=== PATIENT | male | born 1955 | race Caucasian/White ===

== ENCOUNTER 2018-08-31 23:17 | Emergency (ER) | payer BC, OTHER ==
[~2018-08-31] VITALS: Ht 172.7 cm; Wt 103.0 kg
[~2018-08-31 23:17] MED LIST: ALLOPURINOL PO; TESTOSTERONE PELLETS; XANAX
--- OUTSIDE RECORDS SUMMARY | 2018-08-31 23:21 | XMS REPORT ---
Author Author [facility] Address Unknown Phone Unavailable Care Team Providers Care Housing Specialist Name Role Phone MANN GOODWIN Unavailable Unavailable Problems This patient has no known problems. Allergies, Adverse Reactions, Alerts This patient has no known allergies or adverse reactions. Medications This patient has no known medications. Results Test Description Test Time Test Comments Text Results Atomic Results Result Comments FOOT LEFT AP LAT [place] [address] Patient Name: JAKE CORDOBA MR #: [id number] : 1955 Age/Sex: 62/M Req #: [id number] Adm Physician: Ordered by: MANN GOODWIN DPM Report #: [id number] Location: OR Room/Bed: Procedure: [id number] DX/FOOT LEFT AP LAT Exam Date: 06/10/17 Exam Time: 924 REPORT STATUS: Signed PROCEDURE: X-RAY LEFT FOOT, TWO VIEWS COMPARISON: None. INDICATIONS: BUNIONECTOMY FINDINGS: AP and lateral post-operative views of the left foot with overlying bandage material and surgical drain show post- surgical changes of Bunionectomy. There are 2 screws in the distal first metatarsal with near anatomic alignment of the osseous fragments. A K wire transfixes the proximal, mid, and distal phalanges of the fourth digit in anatomic alignment. The hardware is intact. Please refer to performing physician's notes for full details of this procedure. CONCLUSION: As above. Dictated by: Baltazar Keating M.D. on 06/10/2017 at 11:02 Electronically approved by: Baltazar Keating M.D. on 06/10/2017 at 11:02 Dictated By: BALTAZAR KEATING MD 01 Transcribed By: ARETHA on 06/10/171101 COPY TO: MANN OGODWIN DPM CHEST 2 VIEWS [place] [address] Patient Name: JAKE CORDOBA MR #: [id number] : 1955 Age/Sex: 62/M Req #: [id number] Adm Physician: Ordered by: MANN GOODWIN DPM Report #: [id number] Location: OR Room/Bed: Procedure: [id number] DX/CHEST 2 VIEWS Exam Date: 06/01/17 Exam Time: 0900 REPORT STATUS: Signed PROCEDURE: CHEST 2 VIEWS TECHNIQUE: PA and lateral chest INDICATION: Preoperative evaluation for foot surgery COMPARISON: None. FINDINGS: The lungs are clear and symmetrically inflated. No pleural effusions. Normal heart size and central vasculature. Intact skeleton. CONCLUSION: No acute abnormality. Dictated by: Lenka Anderson M.D. on 06/01/2017 at 9:49 Electronically approved by: Lenka Anderson M.D. on 06/01/2017 at 9:49 Dictated By: LENKA ANDERSON MD 8 Transcribed By: ARETHA on 06/01/17948 COPY TO: MANN GOODWIN DPM
[2018-09-01] MEDS ORDERED: ASPIRIN 81 MG CHEW TAB PO ONE
[2018-09-01] MEDS ORDERED: ALBUTEROL SULF 0.083% NEB SOLN 3 ML NEB NEB STA (00:10)
[2018-09-01] MEDS ORDERED: IPRATROPIUM BROMIDE 0.02% 2.5 ML NEB NEB ONE (00:15)
[2018-09-01 00:31] LABS: BASOPHILS # (AUTO) 0.1 (0.0-0.1); BASOPHILS % 0.3 % (0.0-1.0); EOSINOPHILS % 0.1 % (0.0-6.0); HEMATOCRIT 43.3 % (38.2-49.6); HEMOGLOBIN 14.7 g/dL (14.0-18.0); LYMPHOCYTES # (AUTO) 1.5 (1.0-3.2); LYMPHOCYTES % 8.9 % (18.0-39.1); MEAN CORPUSCULAR HEMOGLOBIN 29.9 pg (28-32); MEAN CORPUSCULAR HGB CONC 33.9 g/dL (31-35); MONOCYTES # (AUTO) 1.3 (0.2-0.8); MONOCYTES % 7.6 % (4.4-11.3); NEUTROPHILS # (AUTO) 13.5 (2.1-6.9); NEUTROPHILS % 82.7 % (38.7-80.0); PLATELET COUNT 298 x10e3/uL (140-360); RED BLOOD COUNT 4.92 x10e6/uL (4.3-5.7); RED CELL DISTRIBUTION WIDTH 12.5 % (11.7-14.4)
--- NOTE | 2018-09-01 00:32 | NUR ---
RT NOTIFIED FOR NEB TREATMENT.
[2018-09-01 00:48] LABS: ALANINE AMINOTRANSFERASE 22 IU/L (0-55); ALBUMIN 3.8 g/dL (3.5-5.0); ALBUMIN/GLOBULIN RATIO 1.2 (0.8-2.0); ALKALINE PHOSPHATASE 73 IU/L (40-150); BLOOD UREA NITROGEN 11 mg/dL (7-26); BUN/CREATININE RATIO 9 (6-25); CALCIUM 9.3 mg/dL (8.4-10.2); CARBON DIOXIDE 22 mmol/L (22-29); CREATINE KINASE 201 IU/L (30-200); CREATININE, SERUM 1.17 mg/dL (0.72-1.25); EST GLOMERULAR FILTRATION RATE > 60 ML/MIN (60-); GLUCOSE 151 mg/dL (74-118)
[2018-09-01 01:10] LABS: ANION GAP 16.7 mmol/L (8-16); CHLORIDE 101 mmol/L (98-107); POTASSIUM 4.7 mmol/L (3.5-5.1); SODIUM 135 mmol/L (136-145)
--- NOTE | 2018-09-01 01:39 | Diagnostic Imaging Report ---
CHEST 2 VIEWS, Technique: CHEST 2 VIEWS Comparison: 06/01/2017 Clinical history: Cough DISCUSSION: Stable appearance of the cardiomediastinum. Low lung volumes with mild bibasilar opacities. No effusion or pneumothorax. Anterior wedging of a lower thoracic vertebral body, unchanged. IMPRESSION: Low lung volumes with mild bibasilar opacity, likely atelectasis/vascular crowding. Signed by: Dr Kenzie Choudhury MD on 09/01/2018 1:35 AM
[2018-09-01] MEDS ORDERED: CEFTRIAXONE SOD 1 GM/NS 50 ML 50 ML IV ONE (02:00)
[2018-09-01 02:12] VITALS: BP 155/80
== END 2018-09-01 02:53 | disposition home or self-care (01) ==
LOC: ER 23:17
DX: R05 Cough (principal); R07.89 Other chest pain; J15.9 Unspecified bacterial pneumonia; J98.01 Acute bronchospasm
CPT/HCPCS: 36415; 71046; 80053; 82550; 82553; 83880; 84484; 85025; 87400; 93005; 99284; J0696

== ENCOUNTER 2024-11-23 17:57 | Emergency (ER) | payer OTHER ==
[~2024-11-23] VITALS: Ht 172.7 cm; Wt 103.0 kg
[2024-11-23 18:00] VITALS: TEMP 98.6
[2024-11-23 18:21] VITALS: PULSE 73; RESP 16
[2024-11-23] MEDS: OXYMETAZOLINE HCL 0.05% NAS 1 SPRAY BTL STA (19:19)
[2024-11-23] MEDS ORDERED: ULTRAM 50MG50 MG PO (19:28)
[2024-11-23 20:07] VITALS: BP 143/84; PULSE 76; RESP 18; TEMP 97.6; O2SAT 98
== END 2024-11-23 19:24 | disposition home or self-care (01) ==
LOC: ER 18:04
DX: R04.0 Epistaxis (principal); E78.5 Hyperlipidemia, unspecified; Z85.818 Personal history of malignant neoplasm of other sites of lip, oral cavity, and pharynx; Z87.442 Personal history of urinary calculi
CPT/HCPCS: 99284

== ENCOUNTER 2024-12-06 19:38 | Emergency (ER) | payer OTHER ==
[~2024-12-06] VITALS: Ht 172.7 cm; Wt 103.0 kg
[~2024-12-06 19:38] MED LIST changes: +ULTRAM 50MG50 MG PO
[2024-12-06 19:45] VITALS: TEMP 98
[2024-12-06] MEDS ORDERED: OXYMETAZOLINE HCL 0.05% NAS 1 SPRAY BTL ONE (19:54)
[2024-12-06] MEDS: OXYMETAZOLINE HCL 0.05% NAS 1 SPRAY BTL ONE (20:06)
[2024-12-06 20:16] LABS: BASOPHILS # (AUTO) 0.1 (0.0-0.1); BASOPHILS % 0.4 % (0.0-1.0); EOSINOPHILS # (AUTO) 0.1 (0.0-0.4); EOSINOPHILS % 0.6 % (0.0-6.0); HEMATOCRIT 47.1 % (38.2-49.6); HEMOGLOBIN 16.1 g/dL (14.0-18.0); LYMPHOCYTES # (AUTO) 3.1 (1.0-3.2); LYMPHOCYTES % 21.8 % (18.0-39.1); MEAN CORPUSCULAR HEMOGLOBIN 31.1 pg (28-32); MEAN CORPUSCULAR HGB CONC 34.2 g/dL (31-35); MEAN CORPUSCULAR VOLUME 91.1 fL (81-99); MONOCYTES # (AUTO) 0.9 (0.2-0.8); MONOCYTES % 6.7 % (4.4-11.3); NEUTROPHILS # (AUTO) 9.8 (2.1-6.9); NEUTROPHILS % 69.6 % (38.7-80.0); PLATELET COUNT 254 x10e3/uL (140-360); RED BLOOD COUNT 5.17 x10e6/uL (4.3-5.7); RED CELL DISTRIBUTION WIDTH 13.9 % (11.7-14.4); WHITE BLOOD COUNT 14.01 x10e3/uL (4.8-10.8)
[2024-12-06 20:27] LABS: ALBUMIN 3.8 g/dL (3.5-5.0); ALBUMIN/GLOBULIN RATIO 1.2 (0.8-2.0); ANION GAP 16.2 mmol/L (8-16); BILIRUBIN,TOTAL 0.4 mg/dL (0.2-1.2); CALCIUM 8.8 mg/dL (8.4-10.2); CREATININE, SERUM 1.3 mg/dL (0.72-1.25); POTASSIUM 4.2 mmol/L (3.5-5.1); TOTAL PROTEIN 6.9 g/dL (6.5-8.1)
[2024-12-06 20:43] LABS: INR 0.89; PROTHROMBIN TIME 12.6 seconds (11.9-14.5)
[2024-12-06 20:44] LABS: PARTIAL THROMBOPLASTIN TIME 25.4 seconds (23.8-35.5)
[2024-12-06 21:35] VITALS: PULSE 69; RESP 17; O2SAT 94
== END 2024-12-06 21:43 | disposition home or self-care (01) ==
LOC: ER 19:56
DX: R04.0 Epistaxis (principal); E78.5 Hyperlipidemia, unspecified; I25.10 Atherosclerotic heart disease of native coronary artery without angina pectoris; Z79.01 Long term (current) use of anticoagulants; Z85.818 Personal history of malignant neoplasm of other sites of lip, oral cavity, and pharynx; Z87.442 Personal history of urinary calculi
CPT/HCPCS: 36415; 80053; 85025; 85610; 85730; 99284

== ENCOUNTER 2025-02-05 05:22 | Inpatient (IN) | payer OTHER ==
[2025-02-02 16:06] LABS: BASOPHILS % 0.3 % (0.0-1.0); EOSINOPHILS # (AUTO) 0.1 (0.0-0.4); EOSINOPHILS % 0.9 % (0.0-6.0); HEMATOCRIT 45.3 % (38.2-49.6); HEMOGLOBIN 14.9 g/dL (14.0-18.0); LYMPHOCYTES # (AUTO) 2.2 (1.0-3.2); LYMPHOCYTES % 29.4 % (18.0-39.1); MEAN CORPUSCULAR HEMOGLOBIN 29.5 pg (28-32); MEAN CORPUSCULAR HGB CONC 32.9 g/dL (31-35); MEAN CORPUSCULAR VOLUME 89.7 fL (81-99); MONOCYTES # (AUTO) 0.6 (0.2-0.8); MONOCYTES % 8.1 % (4.4-11.3); NEUTROPHILS # (AUTO) 4.5 (2.1-6.9); PLATELET COUNT 221 x10e3/uL (140-360); RED BLOOD COUNT 5.05 x10e6/uL (4.3-5.7); RED CELL DISTRIBUTION WIDTH 13.4 % (11.7-14.4); WHITE BLOOD COUNT 7.42 x10e3/uL (4.8-10.8)
[2025-02-02 16:24] LABS: ANION GAP 14.2 mmol/L (8-16); CALCIUM 9.1 mg/dL (8.4-10.2); CREATININE, SERUM 1.3 mg/dL (0.72-1.25); POTASSIUM 4.2 mmol/L (3.5-5.1)
[2025-02-05] VITALS (9 sets, daily range): BP systolic 135–167; BP diastolic 67–92; PULSE 65–80; RESP 17–20; TEMP 97.8–98; O2SAT 95–100
[~2025-02-05] VITALS: Ht 172.7 cm; Wt 90.7 kg
[~2025-02-05 05:22] MED LIST changes: +ALLOPURINOL100 MG PO; +ASPIRIN81 MG PO; +FINASTERIDE5 MG PO; +FLOMAX0.4 MG PO; +PANTOPRAZOLE SO40 MG PO; +ZESTRIL40 MG PO
[2025-02-05] MEDS: SODIUM CHLORIDE 0.9% 1000ML 1,000 ML ONE (06:09)
[2025-02-05] MEDS: GENTAMICIN 80MG/NS 100 ML 200 ML IV ONE (06:10)
[2025-02-05] MEDS: CEFTRIAXONE 1 GM VIAL ONE (06:10)
[2025-02-05] MEDS ORDERED: TESTOSTERO200 MG/11 IM (06:16)
[2025-02-05] MEDS ORDERED: SUCCINYLCHOLINE CHLORIDE 20 MG/ML 10ML VIAL ONE (06:48)
[2025-02-05] MEDS ORDERED: FENTANYL CITRATE/PF 100MCG/2 ML INJ ONE ×2 (06:48→07:59)
[2025-02-05] MEDS ORDERED: ROCURONIUM BROMIDE 1 ML IV ONE (06:48)
[2025-02-05] MEDS ORDERED: SEVOFLURANE INHAL SOLN 250 ML PEN BTL ONE (06:49)
[2025-02-05] MEDS ORDERED: LIDOCAINE HCL 2% LOCAL INJ 5 ML SDV VIAL INJ ONE (06:49)
[2025-02-05] MEDS ORDERED: PROPOFOL IV EMULSION 10 MG/ML 20 ML VIAL ONE (06:49)
[2025-02-05] MEDS ORDERED: ACETAMINOPHEN 1000 MG/100 ML 100 ML IV ONE (07:37)
[2025-02-05] MEDS ORDERED: DEXAMETHASONE SOD PHOS INJ 4 MG/ML SDV ONE (07:41)
[2025-02-05] MEDS ORDERED: ONDANSETRON HCL INJ 2MG/ML 2ML 2 MG/ML VIAL ONE (07:41)
[2025-02-05] MEDS ORDERED: EPHEDRINE SULFATE INJ 50 MG/ML VIAL ONE (08:23)
[2025-02-05] MEDS ORDERED: ACETAMINOPHEN/CODEINE 300MG - 30MG TAB PO PRN (09:45)
[2025-02-05] MEDS ORDERED: ONDANSETRON HCL INJ 2MG/ML 2ML 2 MG/ML VIAL IV PRN (09:45)
[2025-02-05] MEDS ORDERED: ACETAMINOPHEN 1000 MG/100 ML IV PRN (09:45)
[2025-02-05] MEDS ORDERED: DIPHENHYDRAMINE HCL 25 MG CAP PO PRN (09:45)
[2025-02-05 10:20] LABS: BASOPHILS % 0.2 % (0.0-1.0); EOSINOPHILS # (AUTO) 0.1 (0.0-0.4); EOSINOPHILS % 0.4 % (0.0-6.0); HEMATOCRIT 46.3 % (38.2-49.6); HEMOGLOBIN 15.4 g/dL (14.0-18.0); LYMPHOCYTES # (AUTO) 1.1 (1.0-3.2); LYMPHOCYTES % 8.6 % (18.0-39.1); MEAN CORPUSCULAR HEMOGLOBIN 29.8 pg (28-32); MEAN CORPUSCULAR HGB CONC 33.3 g/dL (31-35); MEAN CORPUSCULAR VOLUME 89.7 fL (81-99); MONOCYTES # (AUTO) 0.3 (0.2-0.8); MONOCYTES % 2.3 % (4.4-11.3); NEUTROPHILS # (AUTO) 11.3 (2.1-6.9); NEUTROPHILS % 88.1 % (38.7-80.0); PLATELET COUNT 221 x10e3/uL (140-360); RED BLOOD COUNT 5.16 x10e6/uL (4.3-5.7); RED CELL DISTRIBUTION WIDTH 13.1 % (11.7-14.4); WHITE BLOOD COUNT 12.81 x10e3/uL (4.8-10.8)
[2025-02-05 11:10] LABS: ANION GAP 13.5 mmol/L (8-16); CALCIUM 8.1 mg/dL (8.4-10.2); CREATININE, SERUM 1.14 mg/dL (0.72-1.25); MAGNESIUM 1.8 MG/DL (1.3-2.1)
[2025-02-05 11:11] LABS: POTASSIUM 5.5 mmol/L (3.5-5.1)
[2025-02-05] MEDS: SODIUM CHLORIDE 0.9% 1000ML 1,000 ML IV SCH (11:47)
[2025-02-05] MEDS: SENNA-S TABLET PO SCH (16:25)
[2025-02-06] VITALS (7 sets, daily range): BP systolic 123–153; BP diastolic 58–79; PULSE 63–69; RESP 17–20; TEMP 97.4–98.2; O2SAT 94–100
[2025-02-06 05:19] LABS: BASOPHILS % 0.2 % (0.0-1.0); HEMATOCRIT 48.1 % (38.2-49.6); HEMOGLOBIN 15.6 g/dL (14.0-18.0); LYMPHOCYTES # (AUTO) 1.4 (1.0-3.2); LYMPHOCYTES % 8.6 % (18.0-39.1); MEAN CORPUSCULAR HEMOGLOBIN 29.2 pg (28-32); MEAN CORPUSCULAR HGB CONC 32.4 g/dL (31-35); MEAN CORPUSCULAR VOLUME 90.1 fL (81-99); NEUTROPHILS # (AUTO) 13.5 (2.1-6.9); NEUTROPHILS % 84.8 % (38.7-80.0); PLATELET COUNT 250 x10e3/uL (140-360); RED BLOOD COUNT 5.34 x10e6/uL (4.3-5.7); RED CELL DISTRIBUTION WIDTH 13.1 % (11.7-14.4); WHITE BLOOD COUNT 15.96 x10e3/uL (4.8-10.8)
[2025-02-06 06:05] LABS: ANION GAP 13.5 mmol/L (8-16); CALCIUM 8.5 mg/dL (8.4-10.2); CREATININE, SERUM 1.17 mg/dL (0.72-1.25); POTASSIUM 4.5 mmol/L (3.5-5.1)
[2025-02-06] MEDS ORDERED: ACETAMINOPHEN 325 MG TAB PO PRN (08:00)
[2025-02-06] MEDS ORDERED: ONDANSETRON HCL INJ 2MG/ML 2ML 2 MG/ML VIAL IV PRN (08:00)
[2025-02-06] MEDS: PANTOPRAZOLE SOD 40 MG TABEC PO SCH (08:09)
[2025-02-06] MEDS: FINASTERIDE 5 MG TAB PO SCH (08:09)
[2025-02-06] MEDS: ALLOPURINOL 100 MG TAB PO SCH (08:09)
[2025-02-06] MEDS: TAMSULOSIN HCL 0.4 MG CAP PO SCH (17:06)
[2025-02-07] VITALS (9 sets, daily range): BP systolic 129–158; BP diastolic 58–79; PULSE 60–91; RESP 16–20; TEMP 97.7–98.3; O2SAT 94–99
[2025-02-07 05:27] LABS: BASOPHILS # (AUTO) 0.1 (0.0-0.1); BASOPHILS % 0.5 % (0.0-1.0); EOSINOPHILS # (AUTO) 0.1 (0.0-0.4); EOSINOPHILS % 1.2 % (0.0-6.0); HEMATOCRIT 47.6 % (38.2-49.6); LYMPHOCYTES # (AUTO) 2.7 (1.0-3.2); LYMPHOCYTES % 23.3 % (18.0-39.1); MEAN CORPUSCULAR HEMOGLOBIN 28.8 pg (28-32); MEAN CORPUSCULAR HGB CONC 31.5 g/dL (31-35); MEAN CORPUSCULAR VOLUME 91.4 fL (81-99); MONOCYTES % 8.8 % (4.4-11.3); NEUTROPHILS # (AUTO) 7.7 (2.1-6.9); NEUTROPHILS % 65.8 % (38.7-80.0); PLATELET COUNT 227 x10e3/uL (140-360); RED BLOOD COUNT 5.21 x10e6/uL (4.3-5.7); RED CELL DISTRIBUTION WIDTH 13.3 % (11.7-14.4); WHITE BLOOD COUNT 11.65 x10e3/uL (4.8-10.8)
[2025-02-07 05:57] LABS: ANION GAP 14.5 mmol/L (8-16); CALCIUM 8.4 mg/dL (8.4-10.2); CREATININE, SERUM 1.29 mg/dL (0.72-1.25); POTASSIUM 4.5 mmol/L (3.5-5.1)
[2025-02-08] VITALS (9 sets, daily range): BP systolic 127–183; BP diastolic 66–75; PULSE 69–81; RESP 18–20; TEMP 97.7–98.9; O2SAT 95–100
[2025-02-08 05:22] LABS: BASOPHILS # (AUTO) 0.1 (0.0-0.1); BASOPHILS % 0.4 % (0.0-1.0); EOSINOPHILS # (AUTO) 0.4 (0.0-0.4); HEMOGLOBIN 15.2 g/dL (14.0-18.0); LYMPHOCYTES # (AUTO) 2.4 (1.0-3.2); LYMPHOCYTES % 20.8 % (18.0-39.1); MEAN CORPUSCULAR HEMOGLOBIN 29.6 pg (28-32); MEAN CORPUSCULAR VOLUME 89.5 fL (81-99); MONOCYTES # (AUTO) 1.2 (0.2-0.8); MONOCYTES % 9.9 % (4.4-11.3); NEUTROPHILS # (AUTO) 7.6 (2.1-6.9); NEUTROPHILS % 65.1 % (38.7-80.0); PLATELET COUNT 195 x10e3/uL (140-360); RED BLOOD COUNT 5.14 x10e6/uL (4.3-5.7); RED CELL DISTRIBUTION WIDTH 13.3 % (11.7-14.4); WHITE BLOOD COUNT 11.67 x10e3/uL (4.8-10.8)
[2025-02-08 05:49] LABS: ANION GAP 14.1 mmol/L (8-16); CALCIUM 8.3 mg/dL (8.4-10.2); CREATININE, SERUM 1.31 mg/dL (0.72-1.25); POTASSIUM 4.1 mmol/L (3.5-5.1)
[2025-02-09 01:58] VITALS: BP 171/85; PULSE 77; RESP 18; TEMP 97.9; O2SAT 98
[2025-02-09 04:00] VITALS: BP 144/75; PULSE 76; RESP 20; TEMP 98.2; O2SAT 95
[2025-02-09 05:23] LABS: BASOPHILS # (AUTO) 0.1 (0.0-0.1); BASOPHILS % 0.4 % (0.0-1.0); EOSINOPHILS # (AUTO) 0.3 (0.0-0.4); EOSINOPHILS % 2.8 % (0.0-6.0); HEMATOCRIT 46.3 % (38.2-49.6); HEMOGLOBIN 15.2 g/dL (14.0-18.0); LYMPHOCYTES # (AUTO) 2.1 (1.0-3.2); LYMPHOCYTES % 17.8 % (18.0-39.1); MEAN CORPUSCULAR HEMOGLOBIN 29.5 pg (28-32); MEAN CORPUSCULAR HGB CONC 32.8 g/dL (31-35); MEAN CORPUSCULAR VOLUME 89.7 fL (81-99); MONOCYTES % 8.7 % (4.4-11.3); NEUTROPHILS # (AUTO) 8.3 (2.1-6.9); NEUTROPHILS % 69.2 % (38.7-80.0); PLATELET COUNT 202 x10e3/uL (140-360); RED BLOOD COUNT 5.16 x10e6/uL (4.3-5.7); RED CELL DISTRIBUTION WIDTH 13.2 % (11.7-14.4); WHITE BLOOD COUNT 11.94 x10e3/uL (4.8-10.8)
[2025-02-09 05:53] LABS: ANION GAP 15.1 mmol/L (8-16); CALCIUM 8.9 mg/dL (8.4-10.2); CREATININE, SERUM 1.2 mg/dL (0.72-1.25); POTASSIUM 4.1 mmol/L (3.5-5.1)
[2025-02-09 07:43] VITALS: PULSE 75; RESP 18; O2SAT 96
[2025-02-09] MEDS: PHENAZOPYRIDINE HCL 100 MG TAB PO PRN (08:55)
[2025-02-09 09:00] VITALS: BP 144/75; PULSE 75; RESP 18; TEMP 98.2; O2SAT 96
[2025-02-09 09:16] VITALS: BP 140/80; PULSE 82; RESP 20; TEMP 98.7; O2SAT 97
== END 2025-02-09 11:50 | disposition home or self-care (01) | DRG 713 ==
LOC: OR 05:22 → PACU V 09:42 → MED/SURG 10:40
PROVIDERS: ADMIT Internal Medicine; ATTEND Internal Medicine
PROC: 0T7B8ZZ Dilation of Bladder, Via Natural or Artificial Opening Endoscopic (ICD-10-PCS; 2025-02-05)
PROC: BT141ZZ Fluoroscopy of Kidneys, Ureters and Bladder using Low Osmolar Contrast (ICD-10-PCS; 2025-02-05)
PROC: 0VB08ZZ Excision of Prostate, Via Natural or Artificial Opening Endoscopic (ICD-10-PCS; principal; 2025-02-05 07:25)
DX: N40.1 Benign prostatic hyperplasia with lower urinary tract symptoms (principal); N13.8 Other obstructive and reflux uropathy; R31.0 Gross hematuria; I10 Essential (primary) hypertension; R33.8 Other retention of urine; E78.5 Hyperlipidemia, unspecified; N35.912 Unspecified bulbous urethral stricture, male; I73.9 Peripheral vascular disease, unspecified; E66.9 Obesity, unspecified; Z68.30 Body mass index [BMI] 30.0-30.9, adult; Z79.890 Hormone replacement therapy; Z87.440 Personal history of urinary (tract) infections
CPT/HCPCS: 36415; 71046; 74420; 80048; 83735; 85025; 88305; 93005; 94799; 99252; J0330; J0696; J1100; J1580; J2003; J2405; J2470; J7030

== ENCOUNTER 2025-02-13 15:12 | Emergency (ER) | payer OTHER ==
[~2025-02-13] VITALS: Ht 172.7 cm; Wt 94.3 kg
[~2025-02-13 15:12] MED LIST changes: +TESTOSTERO200 MG/11 IM
[2025-02-13 15:15] VITALS: PULSE 80; RESP 16; TEMP 98.5; O2SAT 97
[2025-02-13] MEDS ORDERED: MYRBETRIQ25 MG PO (15:45)
== END 2025-02-13 16:19 | disposition home or self-care (01) ==
LOC: ER 15:20
DX: N32.89 Other specified disorders of bladder (principal); I10 Essential (primary) hypertension; E78.5 Hyperlipidemia, unspecified; I25.10 Atherosclerotic heart disease of native coronary artery without angina pectoris; G47.33 Obstructive sleep apnea (adult) (pediatric); M10.9 Gout, unspecified; Z85.810 Personal history of malignant neoplasm of tongue
CPT/HCPCS: 87086; 99282